=== PATIENT | female | born 1960 | race Caucasian/White ===

== ENCOUNTER 2019-04-27 02:09 | Emergency (ER) | payer OTHER ==
[2019-04-27 02:41] VITALS: BP 136/90; PULSE 97; TEMP 98.2; BMI 37.2
[2019-04-27] MEDS ORDERED: SODIUM CHLORIDE 1,000 ML IV STA (02:52)
[2019-04-27] MEDS ORDERED: ONDANSETRON 4 MG/2 ML VIAL IVPUSH ONE (02:53)
[2019-04-27] MEDS ORDERED: ONDANSETRON 4 MG/2 ML VIAL ONE (03:02)
--- NOTE | 2019-04-27 03:07 | PDOC ---
Attending Attestation - Resident Resident Name: Charli Robertson - ED Attending Attestation I have performed the following: I have examined & evaluated the patient, The case was reviewed & discussed with the resident, I agree w/resident's findings & plan - HPI HPI: 04/27/19 03:06 Vomiting; pt ate out at a restaurant and ate her leftovers after bringing them home. SHe may be food poisoned. But other family members had the food too. It' s possible that pt has a viral gastroenteritis. Pt recently traveled to and from [facility]. - Physicial Exam PE: 04/27/19 06:48 Agree with resident exam - Medical Decision Making 04/27/19 06:48 Pt has likely gastroenteritis. Feels better with saline and zofran. She is stable for d/c home. Labs, exam and vitals improved.
--- NOTE | 2019-04-27 03:25 | PDOC ---
History of Present Illness - General Chief Complaint: Nausea/Vomiting Stated Complaint: VOMITING Time Seen by Provider: 04/27/19 02:55 - History of Present Illness Initial Comments: 04/27/19 04:09 58f with no pmh presents to the ED with vomiting since 1800 this afternoon on and off. She remembers eating hibachi last night with her whole family and eating the refrigerated leftovers for lunch, along with other members of her family. Nobody else got sick. Recently travelled to [place]. Denies fever, chills, diarrhea sob or chest pain. Past History - Past Medical History Allergies/Adverse Reactions: Allergies Allergy/AdvReac Type Severity Reaction Status Date / Time No Known Allergies Allergy Verified 04/27/19 03:18 Home Medications: Ambulatory Orders NK [No Known Home Medication] 04/27/19 COPD: No - Suicide/Smoking/Psychosocial Hx Smoking History: Never smoked *Physical Exam - Vital Signs Last Vital Signs Temp Pulse Resp BP Pulse Ox 98.2 F 97 H 18 136/90 100 04/27/19 02:39 04/27/19 02:39 04/27/19 02:39 04/27/19 02:39 04/27/19 02:39 - Physical Exam General Appearance: Yes: Nourished, Appropriately Dressed. No: Apparent Distress HEENT: positive: EOMI, MARIAH, Normal ENT Inspection Respiratory/Chest: positive: Lungs Clear, Normal Breath Sounds. negative: Chest Tender, Respiratory Distress Cardiovascular: positive: Regular Rhythm, Regular Rate, S1, S2 Gastrointestinal/Abdominal: positive: Normal Bowel Sounds, Flat, Soft. negative : Tender Musculoskeletal: positive: Normal Inspection. negative: CVA Tenderness Extremity: positive: Normal Capillary Refill, Normal Inspection, Normal Range of Motion Integumentary: positive: Normal Color, Dry, Warm Neurologic: positive: Fully Oriented, Alert, Normal Mood/Affect, Normal Response , Motor Strength 5/5 ED Treatment Course - LABORATORY CBC & Chemistry Diagram: 04/27/19 03:15 04/27/19 03:15 Medical Decision Making - Medical Decision Making 04/27/19 04:27 58F vomiting since 1800, feeling much better after vomiting right before presentation. Food poisoning vs viral gastro Low suspicion for cholecystitis, negative reddy's, no abdominal pain. Patient now asymptomatic. EKG: Sinus rhythm. Basic labs WNL. Bolus of NS, zofran. Patient feels much better now. ok to be discharged with return precautions. 04/27/19 04:31 *DC/Admit/Observation/Transfer Diagnosis at time of Disposition: Viral gastroenteritis - Discharge Dispostion Disposition: HOME Condition at time of disposition: Improved Decision to Admit order: No - Referrals - Patient Instructions Printed Discharge Instructions: DI for Vomiting -- Adult Additional Instructions: Come back to the emergency department for any new, worsening or concerning symptom. Follow up with your primary care physician within the week. - Post Discharge Activity
[2019-04-27 03:31] LABS: BASO % 0.2 % (0-2.0); EOS % 0.3 % (0-4.5); HEMOGLOBIN 14.9 GM/dL (10.7-15.3); LYMPH % 7.3 % (8-40); MCH 30.8 pg (25.7-33.7); MCHC 33.9 g/dl (32.0-36.0); MEAN CELL VOLUME 90.6 fl (80-96); MEAN PLT VOLUME 7.7 fl (7.5-11.1); MONO % 4.2 % (3.8-10.2); PLATELET COUNT 314 K/MM3 (134-434); RBC 4.85 M/mm3 (3.60-5.2); RDW 12.3 % (11.6-15.6); WHITE BLOOD COUNT 8.4 K/mm3 (4.0-10.0)
[2019-04-27 03:55] LABS: BILIRUBIN,TOTAL 0.7 mg/dL (0.2-1); BLOOD UREA NITROGEN 18.3 mg/dL (7-18); CALCIUM 8.9 mg/dL (8.5-10.1); CREATININE 0.8 mg/dL (0.55-1.3); POTASSIUM 4.2 mmol/L (3.5-5.1); TOT PROT 7.9 g/dl (6.4-8.2)
--- NOTE | 2019-04-27 13:03 | EKG ---
Test Reason : Blood Pressure : / mmHG Vent. Rate : 092 BPM Atrial Rate : 092 BPM P-R Int : 132 ms QRS Dur : 086 ms QT Int : 356 ms P-R-T Axes : 039 -28 -16 degrees QTc Int : 440 ms NORMAL SINUS RHYTHM NONSPECIFIC T WAVE ABNORMALITY LEFT VENTRICULAR HYPERTROPHY NONSPECIFIC T WAVE ABNORMALITY NO PREVIOUS ECGS AVAILABLE Confirmed by ALEXANDRO BRADLEY MD ([id number]) on 04/27/2019 1:03:08 PM Referred By: Confirmed By:ALEXANDRO BRADLEY MD
== END 2019-04-27 05:21 | disposition home or self-care (01) ==
LOC: JER 02:09
PROC: 3E0337Z Introduction of Electrolytic and Water Balance Substance into Peripheral Vein, Percutaneous Approach (ICD-10-PCS; principal; 2019-04-27)
PROC: 3E033GC Introduction of Other Therapeutic Substance into Peripheral Vein, Percutaneous Approach (ICD-10-PCS; 2019-04-27)
DX: A08.4 Viral intestinal infection, unspecified (principal); B97.89 Other viral agents as the cause of diseases classified elsewhere
CPT/HCPCS: 36415; 80053; 84703; 85025; 93005; 93010; 99281-25; J7030